=== PATIENT | male | born 1985 | race Caucasian/White ===

== ENCOUNTER 2019-12-28 17:55 | Emergency (ER) | payer BC ==
[2019-12-28] MEDS ORDERED: Diphtheria,Pertussis(Acell),Tetanus Vaccine 0.5 ML SDV IM ONE (18:29)
--- NOTE | 2019-12-28 18:30 | EDM.PDOC ---
ED HPI GENERAL MEDICAL PROBLEM - General Chief Complaint: Laceration Stated Complaint: FISH HOOK LEFT MIDDLE FINGER Time Seen by Provider: 12/28/19 18:20 Source of Information: Reports: Patient, RN Notes Reviewed History Limitations: Reports: No Limitations - History of Present Illness INITIAL COMMENTS - FREE TEXT/NARRATIVE: 32-year-old gentleman presents emergency department today with a fishhook distal tip of digit #3 on his left hand happened just prior to presentation to the ED no functional complaints Left Finger-Middle Pain Score (Numeric/FACES): 5 - Related Data Allergies Allergy/AdvReac Type Severity Reaction Status Date / Time Penicillins Allergy Hives Verified 12/28/19 18:12 Home Meds: Home Meds NK [No Known Home Meds] 12/28/19 [History] Past Medical History - Past Health History Medical/Surgical History: Denies Medical/Surgical History Social & Family History - Tobacco Use Smoking Status *Q: Never Smoker - Caffeine Use Caffeine Use: Reports: Coffee - Recreational Drug Use Recreational Drug Use: No ED ROS GENERAL - Review of Systems Review Of Systems: See Below Constitutional: Reports: No Symptoms Skin: Reports: Wound ED EXAM, SKIN/RASH Exam: See Below Text/Narrative:: [facility] distal tip digit #3 left hand palmar surface radial pulses +2 sensation is intact Exam Limited By: No Limitations General Appearance: Alert, WD/WN, No Apparent Distress ED SKIN PROCEDURES - Foreign Body Removal Indication:: [facility] Consent Obtained:: Patient Performing Doctor:: [facility] Other Location Comment:: Left middle finger palmar surface distal tip Anesthesia Type: Local Complications:: No Comments:: Use the fisherman technique Course - Vital Signs Last Recorded V/S: Last Vital Signs Temp 96.1 F L 12/28/19 18:16 Pulse 82 12/28/19 18:16 Resp 14 12/28/19 18:16 BP 125/86 12/28/19 18:16 Pulse Ox 96 12/28/19 18:16 - Orders/Labs/Meds Orders: Active Orders 24 hr Category Date Time Status Vaccines to be Administered [RC] PER UNIT ROUTINE Care 12/28/19 18:29 Active Bacitracin [Bacitracin Oint 1 GM] Med 12/28/19 18:51 Once 1 dose TOP ONETIME ONE Meds: Medications Discontinued Medications Generic Name Dose Route Start Last Admin Trade Name Freq PRN Reason Stop Dose Admin Diphtheria/Tetanus/Acell Pertussis 0.5 ml 12/28/19 18:29 12/28/19 18:34 Adacel IM 12/28/19 18:30 0.5 ml .ONCE ONE Administration Lidocaine HCl 5 ml 12/28/19 18:20 12/28/19 18:34 Xylocaine-Mpf 1% INJECT 12/28/19 18:21 5 ml ONETIME ONE Administration Departure - Departure Time of Disposition: 18:53 Disposition: Home, Self-Care 01 Condition: Good Clinical Impression: Fish hook injury of left middle finger Qualifiers: Encounter type: initial encounter Qualified Code(s): S69.92XA - Unspecified injury of left wrist, hand and finger(s), initial encounter - Discharge Information Instructions: Laceration Care, Adult, [id number] Referrals: PCP,None [Primary Care Provider] - Forms: ED Department Discharge Additional Instructions: Follow-up with primary care as needed Sepsis Event Note - Evaluation Sepsis Screening Result: No Definite Risk - Focused Exam Vital Signs: Vital Signs Temp Pulse Resp BP Pulse Ox 12/28/19 18:16 96.1 F L 82 14 125/86 96 Date Exam was Performed: 12/28/19 Time Exam was Performed: 18:51 - My Orders Last 24 Hours: My Active Orders 12/28/19 18:29 Vaccines to be Administered [RC] PER UNIT ROUTINE 12/28/19 18:51 Bacitracin [Bacitracin Oint 1 GM] 1 dose TOP ONETIME ONE - Assessment/Plan Last 24 Hours: My Active Orders 12/28/19 18:29 Vaccines to be Administered [RC] PER UNIT ROUTINE 12/28/19 18:51 Bacitracin [Bacitracin Oint 1 GM] 1 dose TOP ONETIME ONE Plan: Assessment Acuity = acute Site and laterality = fishhook middle finger left hand distal tip Etiology = crank bait Manifestations = none Location of injury = Home Lab values = none Plan Follow-up primary care as needed This note was dictated using Leo voice recognition software please call with any questions on syntax or grammar.
[2019-12-28] MEDS ORDERED: Bacitracin Oint 1 GM U/D Packet TOP ONE (18:51)
== END 2019-12-28 19:00 | disposition home or self-care (01) ==
LOC: JP.ED 17:55
DX: S60.453A Superficial foreign body of left middle finger, initial encounter (principal); Z88.0 Allergy status to penicillin; Z23 Encounter for immunization; W45.8XXA Other foreign body or object entering through skin, initial encounter
CPT/HCPCS: 90471; 90715; 99282; J2001